=== PATIENT | female | born 1955 | race Caucasian/White ===

== ENCOUNTER 2017-02-03 16:58 | Observation (INO) ==
[2017-02-03 19:46] LABS: Basophils % 0.4 %; Eosinophils # 0.2 K/mcL (0.0-0.6); Eosinophils % 2.8 %; Hematocrit 25.5 % (35.3-44.9); Hemoglobin 7.6 g/dL (11.5-15.4); Immature Granulocytes % 0.1 % (0-4); Immature Platelets 2.9 % (1.1-6.1); Lymphocytes # 1.7 K/mcL (0.6-4.6); Lymphocytes % 24.4 %; Mean Corpuscular HGB Conc 29.8 g/dL (31.6-35.5); Mean Corpuscular Hemoglobin 21.9 pg (28.0-33.3); Mean Corpuscular Volume 73.5 fL (83.0-100.0); Mean Platelet Volume 9.4 fL (9.4-12.4); Monocytes # 0.7 K/mcL (0.0-1.3); Monocytes % 9.2 %; Neutrophils # 4.4 K/mcL (1.6-8.9); Platelet Count 306 K/mcL (140-400); Red Blood Count 3.47 M/mcL (3.82-4.97); Red Cell Distribution Width 15.6 % (11.5-14.5); Segmented Neutrophils % 63.1 %
[2017-02-03 19:51] LABS: INR 0.9; Prothrombin Time 9.9 Seconds (9.4-12.1)
[2017-02-03 20:01] LABS: Alanine Aminotransferase 14 Units/L (0-55); Albumin 3.4 g/dL (3.5-5.0); Albumin/Globulin Ratio 0.9 (1.1-2.2); Alkaline Phosphatase 107 Units/L (38-126); Aspartate Amino Transferase 17 Units/L (5-34); BUN/Creatinine Ratio 20 (6-26); Bilirubin,Total 0.3 mg/dL (0.2-1.2); Blood Urea Nitrogen 20 mg/dL (7-20); Calcium 9.1 mg/dL (8.6-10.8); Carbon Dioxide 23 mEq/L (19-29); Chloride 105 mEq/L (98-109); Globulin 3.6 g/dL (2.4-3.5); Glucose 159 mg/dL (70-99); Osmolality,Calculated 294 (280-300); Potassium 4.4 mEq/L (3.5-4.5); Sodium 139 mEq/L (136-145); eGFR For African Americans > 60 (> 60); eGFR For Non-African Americans 57 (> 60)
--- NOTE | 2017-02-03 20:20 | Emergency Department Note ---
Disposition Clinical Impression: Dyspnea Chest pain Qualifiers: Chest pain type: unspecified Qualified Code(s): R07.9 - Chest pain, unspecified Anemia Qualifiers: Anemia type: unspecified type Qualified Code(s): D64.9 - Anemia, unspecified Disposition: Admitted As Inpatient Condition: Fair Referrals: Edilma Ahuja, PARTS PERSON [Primary Care Provider] - Forms: ED Satisfaction Letter Time of Disposition: 20:30 General Adult HPI - General Chief complaint: ED Dizziness Stated complaint: "low bp" Time Seen by Provider: 02/03/17 20:08 Source: patient Limitations: no limitations Nursing Notes Reviewed: Yes Vital Signs Reviewed: Yes - History of Present Illness HPI Narrative: 61-year-old comes in complaining of chest pain intermittently with extreme exertional dyspnea. A review of the patient's labs notes that she's been anemic with hemoglobin 7.1 since September. She states she's never been told that she was anemic. 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 Location: chest Radiation: non-radiation Pain Severity: mild, moderate Pain Scale: 1 Quality: stabbing, aching Consistency: intermittent Improves with: nothing Worsens with: nothing Associated symptoms: Reports: chest pain - Related Data Home Medications Medication Instructions Recorded Confirmed Albuterol Sulfate [Ventolin Hfa] 2 puff IH Q4H PRN 11/16/15 10/03/16 Atenolol [Tenormin] 50 mg PO DAILY 11/16/15 10/03/16 Buspirone HCl [Buspar] 10 mg PO BID 11/16/15 10/03/16 Esomeprazole Magnesium [Nexium] 40 mg PO DAILY 11/16/15 10/03/16 Lisinopril/Hydrochlorothiazide 1 each PO DAILY 11/16/15 10/03/16 [Zestoretic 20-12.5 mg Tablet] Metformin HCl [Glucophage] 1,000 mg PO BID 11/16/15 10/03/16 Sertraline [Zoloft] 50 mg PO BID 11/16/15 10/03/16 Gabapentin [Neurontin] 600 mg PO BID 11/21/15 10/03/16 Melatonin 5 mg Tablet 5 mg PO HS PRN 04/06/16 10/03/16 Amlodipine [Norvasc] 5 mg PO DAILY 10/03/16 10/03/16 Budesonide/Formoterol 160/4.5 2 puff IH BID 10/03/16 10/03/16 [Symbicort 160/4.5] Cyanocobalamin (B-12) [Vitamin B12] 250 mcg PO DAILY 10/03/16 10/03/16 Cyclobenzaprine [Flexeril] 10 mg PO TID PRN 10/03/16 10/03/16 Oxycodone HCl/Acetaminophen 5 - 325 mg PO Q4H PRN 10/03/16 10/03/16 [Percocet 5-325 mg Tablet] Oxycodone HCl/Acetaminophen 10 - 650 mg PO Q4H PRN 10/03/16 10/03/16 [Percocet 5-325 mg Tablet] Sennosides/Docusate Sodium 8.6 - 50 mg PO BID PRN 10/03/16 10/03/16 [Senna-Docusate Sodium Tablet] Simvastatin [Zocor] 10 mg PO HS 10/03/16 10/03/16 Allergies Allergy/AdvReac Type Severity Reaction Status Date / Time codeine AdvReac Gastrointestinal Verified 02/03/17 17:03 Upset All systems ED: reviewed and negative except as stated. Constitutional: Denies: fever, chills, weakness, weight change Eyes: Denies: eye pain, eye discharge, vision change ENT ED: Denies: ear pain, throat pain, dental pain, hearing loss, epistaxis, congestion, dysphagia Cardiovascular: Reports: chest pain, dyspnea on exertion. Denies: palpitations , edema, syncope Respiratory: Denies: cough, dyspnea, wheezes, hemoptysis, stridor Gastrointestinal: Denies: abdominal pain, nausea, vomiting, diarrhea, constipation, hematemesis, melena, hematochezia Genitourinary: Denies: dysuria, frequency, hematuria, discharge Musculoskeletal: Denies: back pain, neck pain, arthralgia, myalgia Integumentary: Denies: rash, abrasion, lesions Neurological: Denies: headache, weakness, numbness, paresthesias, confusion, abnormal gait, vertigo Psychiatric: Denies: anxiety, depression, suicidal thoughts, homicidal thoughts , auditory hallucinations, visual hallucinations Endocrine: Denies: fatigue Hematological/Lymphatic: Denies: easy bleeding, easy bruising Allergic/Immunologic: Denies: facial swelling, urticaria Past Medical History - Past Medical History Medical history: Reports: cancer, COPD, CVA, diabetes, GERD, hypertension, other Surgical history: Reports: knee replacement Psychiatric history: Reports: bipolar, depression - Social History Smoking Status: Never smoker Smokeless Tobacco Status: No Alcohol use: Reports: none Drug use: Reports: none Physical Exam - General Limitations: no limitations General appearance: alert - Head Head exam: atraumatic, normocephalic, normal inspection - Eye Eye exam: Present: normal appearance - ENT ENT exam: normal exam, normal oropharynx, mucous membranes moist - Neck Neck exam: Present: normal inspection, full ROM, trachea midline - Chest Chest inspection: Present: normal inspection - Respiratory Respiratory exam: Present: normal lung sounds bilaterally - Cardiovascular Cardiovascular exam: Present: regular rate, normal rhythm, normal heart sounds - Abdominal Exam Abdominal exam: Present: soft, Non-Tender. Absent: tenderness, distention, guarding, rebound, rigidity - Extremities Exam Extremities exam: Present: normal inspection, full ROM. Absent: tenderness, pedal edema - Expanded Lower Extremity Exam Neurovascular/Tendon exam: Absent: motor deficit, sensory deficit, tendon deficit Gait: observed and normal - Back Exam Back exam: Present: normal inspection, full ROM. Absent: tenderness - Neurological Exam Neurological exam: Present: alert, oriented X3 - Psychiatric Psychiatric exam: Present: normal affect, normal mood - Skin Skin exam: Present: warm, dry, intact, normal color Course - Reevaluation(s) Reevaluation #1: 61-year-old who comes in complaining of some exertional dyspnea and intermittent chest discomfort. Workup included a hemoglobin of 7.6 and when I go back she's had a low hemoglobin since September when she had back surgery. Her symptoms seem to be related to her anemia. Discussed the case with the hospitalist he was given a unit of blood since she is symptomatic and less than 8. Time: 20:28 - Consultations Consultation #1: Discussed with , adama. Time: 20:28 Vital Signs Temperature 98.5 F 02/03/17 17:00 Pulse Rate 71 02/03/17 17:00 Respiratory Rate 18 02/03/17 17:00 Blood Pressure 144/90 02/03/17 17:00 O2 Sat by Pulse Oximetry 100 02/03/17 17:00 Temperature 98.5 F 02/03/17 17:00 Pulse Rate 80 02/03/17 19:26 Respiratory Rate 18 02/03/17 19:26 Blood Pressure 159/87 02/03/17 19:26 O2 Sat by Pulse Oximetry 99 02/03/17 19:26 Oxygen Delivery Oxygen Delivery Room Air Medical Decision Making - Lab Data Lab results reviewed: Yes I reviewed the patient's lab results. Result diagrams: 02/03/17 19:29 02/03/17 19:29 Lab Results 02/03/17 02/03/17 02/03/17 Range/Units 19:29 19:29 19:29 WBC 7.1 (4.3-11.1) K/mcL RBC 3.47 L (3.82-4.97) M/mcL Hgb 7.6 L (11.5-15.4) g/dL Hct 25.5 L (35.3-44.9) % MCV 73.5 L (83.0-100.0) fL MCH 21.9 L (28.0-33.3) pg MCHC 29.8 L (31.6-35.5) g/dL RDW 15.6 H (11.5-14.5) % Plt Count 306 (140-400) K/mcL MPV 9.4 (9.4-12.4) fL Immature Gran % 0.1 (0-4) % Seg Neutrophils % 63.1 % Lymphocytes % 24.4 % Monocytes % 9.2 % Eosinophils % 2.8 % Basophils % 0.4 % Neutrophils # 4.4 (1.6-8.9) K/mcL Lymphocytes # 1.7 (0.6-4.6) K/mcL Monocytes # 0.7 (0.0-1.3) K/mcL Eosinophils # 0.2 (0.0-0.6) K/mcL Basophils # 0.0 (0.0-0.2) K/mcL Immature Plt Fraction 2.9 (1.1-6.1) % PT 9.9 (9.4-12.1) Seconds INR 0.9 Sodium 139 (136-145) mEq/L Potassium 4.4 (3.5-4.5) mEq/L Chloride 105 (98-109) mEq/L Carbon Dioxide 23 (19-29) mEq/L BUN 20 (7-20) mg/dL Creatinine 0.99 (0.57-1.11) mg/dL Est GFR ( Amer) > 60 (> 60) Est GFR (Non-Af Amer) 57 L (> 60) BUN/Creatinine Ratio 20 (6-26) Glucose 159 H (70-99) mg/dL Calculated Osmolality 294 (280-300) Calcium 9.1 (8.6-10.8) mg/dL Total Bilirubin 0.3 (0.2-1.2) mg/dL AST 17 (5-34) Units/L ALT 14 (0-55) Units/L Alkaline Phosphatase 107 (38-126) Units/L Troponin I (0-0.03) ng/mL Serum Total Protein 7.0 (6.0-8.3) g/dL Albumin 3.4 L (3.5-5.0) g/dL Globulin 3.6 H (2.4-3.5) g/dL Albumin/Globulin Ratio 0.9 L (1.1-2.2) 02/03/17 Range/Units 19:29 WBC (4.3-11.1) K/mcL RBC (3.82-4.97) M/mcL Hgb (11.5-15.4) g/dL Hct (35.3-44.9) % MCV (83.0-100.0) fL MCH (28.0-33.3) pg MCHC (31.6-35.5) g/dL RDW (11.5-14.5) % Plt Count (140-400) K/mcL MPV (9.4-12.4) fL Immature Gran % (0-4) % Seg Neutrophils % % Lymphocytes % % Monocytes % % Eosinophils % % Basophils % % Neutrophils # (1.6-8.9) K/mcL Lymphocytes # (0.6-4.6) K/mcL Monocytes # (0.0-1.3) K/mcL Eosinophils # (0.0-0.6) K/mcL Basophils # (0.0-0.2) K/mcL Immature Plt Fraction (1.1-6.1) % PT (9.4-12.1) Seconds INR Sodium (136-145) mEq/L Potassium (3.5-4.5) mEq/L Chloride (98-109) mEq/L Carbon Dioxide (19-29) mEq/L BUN (7-20) mg/dL Creatinine (0.57-1.11) mg/dL Est GFR ( Amer) (> 60) Est GFR (Non-Af Amer) (> 60) BUN/Creatinine Ratio (6-26) Glucose (70-99) mg/dL Calculated Osmolality (280-300) Calcium (8.6-10.8) mg/dL Total Bilirubin (0.2-1.2) mg/dL AST (5-34) Units/L ALT (0-55) Units/L Alkaline Phosphatase (38-126) Units/L Troponin I 0.00 (0-0.03) ng/mL Serum Total Protein (6.0-8.3) g/dL Albumin (3.5-5.0) g/dL Globulin (2.4-3.5) g/dL Albumin/Globulin Ratio (1.1-2.2) - Radiology Data Radiology results reviewed: Yes I reviewed the patient's radiology results. - EKG Data EKG #1 EKG shows normal: sinus rhythm Rate: normal Rhythm: NSR Interpretation: nonspecific ST-T wave changes Critical Care Time Critical Care Time: Yes Total Critical Care Time: 30 Attestation: The high probability of a clinically significant, sudden or life threatening deterioration of the [cardiovascular hematologic] system(s) required my full and direct attention, intervention and personal management. The aggregate critical care time was [30] minutes. This time is in addition to time spent performing reported procedures but includes the following: [x] Data Review and interpretation [x] Patient assessment and monitoring of vital signs [x] Documentation [x] Medication orders and management
[2017-02-03] MEDS ORDERED: 0.9 % Sodium Chloride Mini Bag 100 ML ONE (22:33)
[2017-02-04] MEDS ORDERED: Naloxone 0.4 MG/ML INJ IVP PRN (01:58)
[2017-02-04] MEDS ORDERED: Acetaminophen 325 MG TABLET PO PRN (01:58)
--- NOTE | 2017-02-04 02:06 | Internal Med History&Physical ---
Date of Encounter: 02/04/17 Time of Encounter: 02:06 Assessment and Plan (1) Postural hypotension Status: Acute Possibly related to volume depletion versus autonomic dysfuction due to DM. Pt is given IV fluids. Monitor orthostatic vitals. Currently the pt is not hypotensive. Hold antihypertensives at this time (2) Chest pain Status: Acute Trend troponins Qualifiers: Chest pain type: unspecified Qualified Code(s): R07.9 - Chest pain, unspecified (3) Microcytic anemia Status: Acute Check iron studies. check fecal occult blood. 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 use: without terminal press operator use Qualified Code(s): E11.9 - Type 2 diabetes mellitus without complications (5) Morbid obesity Status: Chronic supportive care Qualifiers: Obesity type: unspecified obesity type Qualified Code(s): E66.01 - Morbid ( severe) obesity due to excess calories (6) COPD (chronic obstructive pulmonary disease) Status: Chronic Continue home meds; bronchodilators Qualifiers: COPD type: unspecified COPD Qualified Code(s): J44.9 - Chronic obstructive pulmonary disease, unspecified (7) GERD (gastroesophageal reflux disease) Status: Chronic Continue PPI Qualifiers: Esophagitis presence: esophagitis presence not specified Qualified Code(s) : K21.9 - Gastro-esophageal reflux disease without esophagitis Internal Medicine - H&P: HPI Chief complaint: Low BP Admitted From: Emergency Dept Plans for Post Hospital Care: Home History of present illness: Ms. Sharp is a 61 year old female with h/o COPD, diabetes, GERD, hypertension. She reports that over the last 3 weeks her blood pressure has been low, but symptoms of intermittent dizziness on standing up / walking. She reports htat she had BP of 69/38, while she was in [place] about 3 weeks ago. Apparently she had other episodes where her systolic blood pressure was in the 60s to 80s and was symptomatic with dizziness. Primary care physician recently reduced the dose of her antihypertensive medications (which included the reduced dose of atenolol from 50-25 mg a day, reducing the dose of lisinopril from 20 mg to 10 mg a day). She was apparently evaluated in primary care physicians office and was noted to be hypotensive and hence she was sent to emergency department for evaluation. The she has been normotensive to hypertensive. She denies headache or dizziness this time. She reports intermittent left infraclavicular, localized pain with no radiation. Pain is achy, intermittent, 5/10 at maximum; not associated with sweating, palpitations, shortness of breath, nausea, vomiting. She reports of feeling short of breath on minimal exertion. She denies significant cough or expectoration. She denies hematemesis, hematuria, melena, hematochezia, vaginal bleeding. She apparently had upper and lower GI endoscopy over 5 years ago, and had polyps removed. Family history significant for diabetes mellitus on her fathers side. She reports history of stomach cancer in her paternal grandfather and paternal uncle. Past Med Surg Social Fam HX - Past Medical History Medical history: cancer, COPD, CVA, diabetes, GERD, hypertension, other Psychiatric history: anxiety, bipolar, depression - Past Surgical History Surgical History: knee replacement - Social History Smoking Status: Never smoker Smokeless Tobacco Status: No Alcohol use: none Drug use: none - Family History Mother Living Status: Still Living Hx Family Cardiac Disorders: No Hx Family Respiratory Disorders: Yes Hx Family Cancer: No Hx Family GI Disorders: Yes Hx Family Endocrine Disorder: No Hx Family Neuromuscular Disorders: No Hx Family Neurologic Disorders: No Hx Family HEENT Disorders: No Hx Family Autoimmune Disorders: No Internal Medicine - H&P: Meds Albuterol Sulfate [Ventolin Hfa] 2 puff IH Q4H PRN 11/16/15 [History] Buspirone HCl [Buspar] 10 mg PO BID 11/16/15 [History] Esomeprazole Magnesium [Nexium] 40 mg PO DAILY 11/16/15 [History] Metformin HCl [Glucophage] 1,000 mg PO BID 11/16/15 [History] Sertraline [Zoloft] 50 mg PO BID 11/16/15 [History] Gabapentin [Neurontin] 1,200 mg PO QAM 11/21/15 [History] Melatonin 5 mg PO HS PRN 04/06/16 [History] Amlodipine [Norvasc] 5 mg PO DAILY 10/03/16 [History] Budesonide/Formoterol 160/4.5 [Symbicort 160/4.5] 2 puff IH BID 10/03/16 [ History] Cyanocobalamin (B-12) [Vitamin B12] 250 mcg PO DAILY 10/03/16 [History] Cyclobenzaprine [Flexeril] 10 mg PO TID PRN 10/03/16 [History] Sennosides/Docusate Sodium [Senna-Docusate Sodium Tablet] 8.6 - 50 mg PO BID PRN 10/03/16 [History] Simvastatin [Zocor] 10 mg PO HS 10/03/16 [History] Aclidinium [place] [Tudorza Pressair] 1 puff IH BID 02/03/17 [History] Aspirin [Lo-Dose Aspirin EC] 81 mg PO DAILY 02/03/17 [History] Celecoxib [Celebrex] 200 mg PO BID PRN 02/03/17 [History] Gabapentin [Neurontin] 1,200 mg PO HS 02/03/17 [History] Lisinopril/Hydrochlorothiazide [Zestoretic 10-12.5 mg Tablet] 1 tab PO DAILY 05/15 [History] OxyCODONE/APAP 5/325 mg PO Q4HR PRN 02/03/17 [History] Tizanidine HCl 4 mg PO BID 02/03/17 [History] Atenolol [Tenormin] 25 mg PO DAILY #30 tablet 02/04/17 [Rx] Ferrous Sulfate 325 mg PO BID #60 tablet. 02/04/17 [Rx] Allergies codeine Adverse Reaction (Verified 02/03/17 17:03) Gastrointestinal Upset All Systems PM: A 10-system review of systems was performed and is negative for pertinent findings except as documented above in the HPI. - Constitutional Vitals: Temp Pulse Resp BP Pulse Ox 97.0 F L 89 14 184/135 97 02/04/17 01:50 02/04/17 01:50 02/04/17 01:50 02/04/17 01:50 02/04/17 01:50 Exam: General: Not in acute distress at the time of my evaluation HEENT: Oral mucosa is moist. conjunctival palor preesent. No scleral icterus Neck: No obvious neck swellings Lungs: Clear to auscultation Cardiac: Regular rate and rhythm. No significant murmurs. Mild chest wall tenderness in hte left lateral infraclavicular area Abdomen: Soft, non tender. Bowel sounds present Genitourinary: No whitmore catheter Neurological: Alert and oriented. No gross localizing deficits Psych: Not aggressive or agitated Extremities: mild leg edema Skin: No generalized rash Internal Med - H&P Results - Labs CBC & Chem 7: 02/04/17 16:22 02/04/17 06:42 - EKG Data -: EKG Interpreted by Myself - EKG Data EKG comments: Sinus rhythm, Flat T waves in the chest leads. 02/04/17 06:16 - Impressions ITS Impressions Chest X-Ray 02/03/17 19:16 IMPRESSION: No evidence of acute disease. D/ / Collins Weaver MD / Collins Weaver MD Interpreting Provider: Collins Weaver MD
[2017-02-04 02:39] LABS: % Iron Saturation 3 % (15-50); Iron 14 mcg/dL (50-170); Transferrin 326 mg/dL (180-382)
[2017-02-04 02:59] LABS: Ferritin 8 ng/ml (5-204)
[2017-02-04 03:13] LABS: Folate 10.4 ng/mL (7.0-31.4)
[2017-02-04 03:14] LABS: Vitamin B12 > 2000 pg/mL (213-816)
[2017-02-04 03:49] LABS: Chol/HDL Ratio 3.2 (0-4.9); Magnesium 1.3 mg/dL (1.6-2.6)
[2017-02-04] MEDS ORDERED: *HR* Labetalol 20 MG/4 ML SYRINGE IVP PRN (04:53)
[2017-02-04] MEDS ORDERED: Magnesium Sulfate 2 GM in D5% in Water 100 ML IVPB ONE (05:19)
[2017-02-04 06:53] LABS: Hematocrit 30.1 % (35.3-44.9); Mean Corpuscular HGB Conc 30.9 g/dL (31.6-35.5); Mean Corpuscular Hemoglobin 22.7 pg (28.0-33.3); Mean Corpuscular Volume 73.4 fL (83.0-100.0); Mean Platelet Volume 9.6 fL (9.4-12.4); Platelet Count 296 K/mcL (140-400); Red Cell Distribution Width 15.6 % (11.5-14.5)
[2017-02-04 06:59] LABS: BUN/Creatinine Ratio 21 (6-26); Blood Urea Nitrogen 17 mg/dL (7-20); Calcium 9.5 mg/dL (8.6-10.8); Carbon Dioxide 24 mEq/L (19-29); Chloride 105 mEq/L (98-109); Glucose 113 mg/dL (70-99); Osmolality,Calculated 294 (280-300); Potassium 4.7 mEq/L (3.5-4.5); Sodium 141 mEq/L (136-145); eGFR For African Americans > 60 (> 60); eGFR For Non-African Americans > 60 (> 60)
[2017-02-04] MEDS ORDERED: *HR* Dextrose 50 % in Water (Syg) 50 ML SYRINGE IVP PRN (07:07)
[2017-02-04] MEDS ORDERED: D5% in Water 1,000 ML IVC PRN (07:07)
[2017-02-04] MEDS ORDERED: Dextrose Gel 15 GM PO PRN ×2 (07:07)
[2017-02-04 07:10] LABS: Hemoglobin 9.3 g/dL (11.5-15.4)
[2017-02-04] MEDS: Insulin LISPRO 300 UNITS/3 ML VIAL SQ SCH ×2 (08:11→11:26)
[2017-02-04] MEDS ORDERED: Gabapentin 400 MG CAPSULE PO SCH ×2 (09:00→21:00)
[2017-02-04] MEDS ORDERED: amLODIPine 5 MG TABLET PO SCH (09:00)
[2017-02-04] MEDS ORDERED: tiZANidine 4 MG TABLET PO SCH (09:00)
[2017-02-04] MEDS ORDERED: Cyanocobalamin (B-12) 1,000 MCG TABLET PO SCH (09:00)
[2017-02-04] MEDS ORDERED: Aspirin Enteric Coated 81 MG Tablet PO SCH (09:00)
[2017-02-04] MEDS ORDERED: Budesonide/Formoterol 160/4.5 MDI IH SCH (10:00)
[2017-02-04 16:48] LABS: Basophils % 0.6 %; Eosinophils # 0.2 K/mcL (0.0-0.6); Eosinophils % 2.3 %; Hematocrit 31.1 % (35.3-44.9); Hemoglobin 9.4 g/dL (11.5-15.4); Immature Granulocytes % 0.7 % (0-4); Lymphocytes # 1.7 K/mcL (0.6-4.6); Lymphocytes % 24.1 %; Mean Corpuscular HGB Conc 30.2 g/dL (31.6-35.5); Mean Corpuscular Hemoglobin 22.1 pg (28.0-33.3); Mean Platelet Volume 9.8 fL (9.4-12.4); Monocytes # 0.7 K/mcL (0.0-1.3); Monocytes % 10.3 %; Neutrophils # 4.3 K/mcL (1.6-8.9); Platelet Count 312 K/mcL (140-400); Red Blood Count 4.26 M/mcL (3.82-4.97); Red Cell Distribution Width 15.7 % (11.5-14.5)
--- NOTE | 2017-02-04 16:58 | Discharge Summary ---
Date of Encounter: 02/04/17 Time of Encounter: 16:56 - Discharge Diagnosis (1) Iron deficiency anemia Priority: Secondary Status: Acute Qualifiers: Iron deficiency anemia type: chronic blood loss Qualified Code(s): D50.0 - Iron deficiency anemia secondary to blood loss (chronic) (2) Diabetes mellitus type 2, noninsulin dependent Priority: Secondary Status: Acute (3) Postural hypotension Priority: Primary Status: Acute - Discharge Medications Prescriptions: Atenolol [Tenormin] 25 mg PO DAILY #30 tablet Ferrous Sulfate 325 mg PO BID #60 tablet.dr Home Medications: Albuterol Sulfate [Ventolin Hfa] 2 puff IH Q4H PRN 11/16/15 [History] Buspirone HCl [Buspar] 10 mg PO BID 11/16/15 [History] Esomeprazole Magnesium [Nexium] 40 mg PO DAILY 11/16/15 [History] Metformin HCl [Glucophage] 1,000 mg PO BID 11/16/15 [History] Sertraline [Zoloft] 50 mg PO BID 11/16/15 [History] Gabapentin [Neurontin] 1,200 mg PO QAM 11/21/15 [History] Melatonin 5 mg PO HS PRN 04/06/16 [History] Amlodipine [Norvasc] 5 mg PO DAILY 10/03/16 [History] Budesonide/Formoterol 160/4.5 [Symbicort 160/4.5] 2 puff IH BID 10/03/16 [ History] Cyanocobalamin (B-12) [Vitamin B12] 250 mcg PO DAILY 10/03/16 [History] Cyclobenzaprine [Flexeril] 10 mg PO TID PRN 10/03/16 [History] Sennosides/Docusate Sodium [Senna-Docusate Sodium Tablet] 8.6 - 50 mg PO BID PRN 10/03/16 [History] Simvastatin [Zocor] 10 mg PO HS 10/03/16 [History] Aclidinium [place] [Tudorza Pressair] 1 puff IH BID 02/03/17 [History] Aspirin [Lo-Dose Aspirin EC] 81 mg PO DAILY 02/03/17 [History] Celecoxib [Celebrex] 200 mg PO BID PRN 02/03/17 [History] Gabapentin [Neurontin] 1,200 mg PO HS 02/03/17 [History] Lisinopril/Hydrochlorothiazide [Zestoretic 10-12.5 mg Tablet] 1 tab PO DAILY 05/15 [History] OxyCODONE/APAP 5/325 mg PO Q4HR PRN 02/03/17 [History] Tizanidine HCl 4 mg PO BID 02/03/17 [History] Atenolol [Tenormin] 25 mg PO DAILY #30 tablet 02/04/17 [Rx] Ferrous Sulfate 325 mg PO BID #60 tablet. 02/04/17 [Rx] Allergies/Adverse Reactions: Allergies codeine Adverse Reaction (Verified 02/03/17 17:03) Gastrointestinal Upset Date of admission: 02/03/17 21:08 Primary care physician: Edilma Ahuja CNP Consults: 02/03/17 22:21 Consult to Nutrition [CONS] Routine Comment: Consulting Provider: NUTRITION Reason for Dietary Consult: MST Score - Patient Status Disposition: Home, Self-Care Condition: Good Functional capacity at discharge: independent ambulation Overall status at discharge: patient is back to baseline - Discharge Instructions Follow Up With: Edilma Ahuja CNP [Primary Care Provider] - Winnie Centeno MD [Partnered Physician] - Additional Instructions: Please call the office of Dr. Centeno on Monday to arrange for an appointment for colonoscopy and upper endoscopy. Follow-up with primary care physician in one to 2 weeks. You will have to spread out your blood pressure pills by taking the HCTZ and lisinopril in the morning and the atenolol and a lot of pain in the afternoon. - Diet and Activity Activity: increase activity as tolerated Diet: diabetic diet, low fat, low cholesterol, low salt diet Hospital course: Hospital presentation:Ms. Sharp is a 61 year old female with h/o COPD, diabetes , GERD, hypertension. She reports that over the last 3 weeks her blood pressure has been low, but symptoms of intermittent dizziness on standing up / walking. She reports htat she had BP of 69/38, while she was in [place] about 3 weeks ago. Apparently she had other episodes where her systolic blood pressure was in the 60s to 80s and was symptomatic with dizziness. Primary care physician recently reduced the dose of her antihypertensive medications (which included the reduced dose of atenolol from 50-25 mg a day, reducing the dose of lisinopril from 20 mg to 10 mg a day). She was apparently evaluated in primary care physicians office and was noted to be hypotensive and hence she was sent to emergency department for evaluation. The she has been normotensive to hypertensive. She denies headache or dizziness this time. She reports intermittent left infraclavicular, localized pain with no radiation. Pain is achy, intermittent, 5/10 at maximum; not associated with sweating, palpitations, shortness of breath, nausea, vomiting. She reports of feeling short of breath on minimal exertion. She denies significant cough or expectoration. She denies hematemesis, hematuria, melena, hematochezia, vaginal bleeding. She apparently had upper and lower GI endoscopy over 5 years ago, and had polyps removed. Hospital course: The patient was placed in the hospital for observation. She was given IV fluids. Her blood pressure was checked frequently and was normal or high. She was restarted on her blood pressure medications. He tolerated this well. She was instructed to arrange a follow-up with gastroenterology for upper endoscopy and colonoscopy. She denied a history of hematemesis melena or rectal bleed. Her iron studies were done during this hospitalization and revealed iron level low of 14, percent saturation 3% and ferritin level at 8. She was given 1 unit of blood transfusion and her hemoglobin responded appropriately to 9.3. A repeat hemoglobin at 12 hours remained stable at 9.4. She is currently normotensive and her lightheadedness and weakness has resolved. She reports being back to baseline. She does not require any further inpatient workup and therefore will be discharged home. She was instructed to spread out her antihypertensive medication given that she as taking 4 different medications for hypertension. - Time Spent with Patient Total time spent providing and/or coordinating discharge services: - Constitutional Vitals: Temp Pulse Resp BP Pulse Ox 98.2 F 80 18 116/77 94 02/04/17 15:07 02/04/17 15:07 02/04/17 15:07 02/04/17 15:02/04/17 15:07 - Respiratory Respiratory exam: Present: CTAB. Absent: accessory muscle use, rales, rhonchi, wheezes - Cardiovascular Cardiovascular exam: Present: RRR, +S1, +S2. Absent: diastolic murmur, gallop, rubs, systolic murmur - GI/Abdominal GI/Abdominal exam: Present: normal bowel sounds, soft, no peritoneal signs. Absent: distended, tenderness - Extremities Exam Extremities exam: Present: warm, radial pulses palpable and symetrical. Absent : calf tenderness, cyanotic, pedal edema - Neurological Exam Neurological exam: Present: CN II-XII intact, oriented X3, no focal deficits. Absent: pronater drift, facial droop, speech deficit
[2017-02-04] MEDS ORDERED: Insulin LISPRO 300 UNITS/3 ML VIAL SQ SCH (21:00)
--- NOTE | 2017-02-06 08:57 | Electrocardiograph Report ---
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
[2017-02-07 10:27] VITALS: BP 116/77
== END 2017-02-04 18:15 | disposition home or self-care (01) ==
LOC: EMEROO 16:58 → 3ANU 16:58
PROVIDERS: ADMIT Nurse Practitioner Acute Care; ATTEND Internal Medicine

== ENCOUNTER 2017-10-14 11:05 | Inpatient (IN) ==
[~2017-10-14 11:05] MED LIST: *HR* Labetalol 20 MG/4 ML SYRINGE IVP PRN; *HR* Promethazine 25 MG/ML VIAL IVP PRN
--- NOTE | 2017-10-14 11:16 | History & Physical Report ---
Date of Encounter: 10/14/17 Time of Encounter: 11:15 24 Hour HP Update - Instructions Instructions: If the History and Physical is less than 30 days old and was completed prior to A.M. admission and or procedure and has NOT been updated on calendar day of procedure please complete this update prior to performing procedure. - Update Patient reports changes in Medical Condition: No Changes in examination, assessment, or condition: No Changes in Medication: No Preop tests/diagnostics Reviewed: Yes Surgery Remains Indicated: Yes Consent for Planned Operative Procedure(s) Verified: Yes - Pre-Operative Checklist Preoperative Checklist Indicated: No Prophylactic Antibiotic Ordered: Yes Is VTE Prophylaxis Indicated?: Yes
[2017-10-14] MEDS ORDERED: Albuterol 2.5 MG/3 ML NEBULIZER IH ONE (11:25)
[2017-10-14] MEDS ORDERED: CeFAZolin Syr 2,000MG/20 ML 2,000 MG/20 ML SYRINGE IVPB ONE (11:25)
[2017-10-14] MEDS ORDERED: Lidocaine -MPF 1% 2 ML VIAL ID ONE (11:25)
[2017-10-14] MEDS ORDERED: Plasma-Lyte A (PH 7.4) 1,000 ML IVC SCH (11:30)
[2017-10-14] MEDS ORDERED: Levalbuterol Neb 1.25 MG/3 ML IH ONE (12:04)
--- NOTE | 2017-10-14 12:23 | History & Physical Report ---
Date of Encounter: 10/14/17 Time of Encounter: 12:23 24 Hour HP Update - Instructions Instructions: If the History and Physical is less than 30 days old and was completed prior to A.M. admission and or procedure and has NOT been updated on calendar day of procedure please complete this update prior to performing procedure. - Update Patient reports changes in Medical Condition: No Changes in examination, assessment, or condition: No Changes in Medication: No Preop tests/diagnostics Reviewed: Yes Surgery Remains Indicated: Yes Consent for Planned Operative Procedure(s) Verified: Yes - Pre-Operative Checklist Preoperative Checklist Indicated: No Prophylactic Antibiotic Ordered: Yes Is VTE Prophylaxis Indicated?: Yes
[2017-10-14] MEDS ORDERED: *HR* FentaNYL (PF) 100 MCG/2 ML VIAL ONE ×2 (12:38→14:41)
[2017-10-14] MEDS ORDERED: *HR* Propofol 200 MG/20 ML VIAL IVP ONE (12:38)
[2017-10-14] MEDS ORDERED: *HR* Midazolam HCl 2 MG/2 ML VIAL ONE (12:38)
[2017-10-14] MEDS ORDERED: Vancomycin 1,000 MG in D5% in Water 250 ML IVPB ONE (12:42)
[2017-10-14] MEDS ORDERED: Ondansetron 4 MG/2 ML VIAL ONE (12:47)
[2017-10-14] MEDS ORDERED: Dexamethasone 4 MG/ML VIAL ONE (12:47)
--- NOTE | 2017-10-14 13:18 | Discharge Summary ---
Date of Encounter: 10/16/17 Time of Encounter: 06:52 - Discharge Diagnosis (1) Arthritis of left knee Priority: Primary Status: Chronic (2) Status post total left knee replacement Priority: Primary Status: Acute (3) Obesity (BMI 30.0-34.9) Priority: Secondary Status: Chronic (4) History of CVA (cerebrovascular accident) Priority: Secondary Status: Chronic (5) COPD (chronic obstructive pulmonary disease) Priority: Secondary Status: Chronic Qualifiers: COPD type: unspecified COPD Qualified Code(s): J44.9 - Chronic obstructive pulmonary disease, unspecified (6) Diabetes mellitus Priority: Secondary Status: Chronic Qualifiers: Diabetes mellitus type: type 2 Diabetes mellitus complication status: with unspecified complications Diabetes mellitus exterminator helper insulin use: unspecified half-way insulin use status Qualified Code(s): E11.8 - Type 2 diabetes mellitus with unspecified complications (7) Hypertension Priority: Secondary Status: Chronic Qualifiers: Hypertension type: unspecified Qualified Code(s): I10 - Essential (primary ) hypertension (8) GERD (gastroesophageal reflux disease) Priority: Secondary Status: Chronic Qualifiers: Esophagitis presence: esophagitis presence not specified Qualified Code(s) : K21.9 - Gastro-esophageal reflux disease without esophagitis (9) Status post shoulder replacement Priority: Secondary Status: Chronic Qualifiers: Laterality: unspecified laterality Qualified Code(s): Z96.619 - Presence of unspecified artificial shoulder joint (10) Diabetes mellitus type 2, noninsulin dependent Priority: Secondary Status: Chronic (11) Acute blood loss anemia Priority: Primary Status: Acute - Discharge Medications Home Medications: Buspirone HCl [Buspar] 10 mg PO BID 11/16/15 [History] Metformin HCl [Glucophage] 1,000 mg PO BID 11/16/15 [History] Melatonin 5 mg PO HS PRN 04/06/16 [History] Simvastatin [Zocor] 10 mg PO HS 10/03/16 [History] Aspirin [Lo-Dose Aspirin EC] 81 mg PO DAILY 02/03/17 [History] Celecoxib [Celebrex] 200 mg PO BID PRN 02/03/17 [History] Gabapentin [Neurontin] 800 mg PO TID 02/03/17 [History] Lisinopril/Hydrochlorothiazide [Zestoretic 10-12.5 mg Tablet] 1 tab PO DAILY 05/15 [History] Ferrous Sulfate 325 mg PO BID #60 tablet. 02/04/17 [Rx] Aclidinium [place] [Tudorza Pressair] 400 mcg IH BID 10/14/17 [History] Albuterol Sulfate [Ventolin Hfa] 18 gm IH Q4HR PRN 10/14/17 [History] Metoprolol Succinate 50 mg PO DAILY 10/14/17 [History] Pantoprazole Sodium [Protonix] 40 mg PO BID 10/14/17 [History] Sertraline [Zoloft] 50 mg PO BID 10/14/17 [History] Allergies/Adverse Reactions: 3 Allergy/AdvReac Type Severity Reaction Status Date / Time codeine AdvReac Gastrointestinal Verified 10/15/17 11:19 Upset Labs on day of discharge: Labs from last 24 hours 10/14/17 11:41 POC Glucose 129 H Primary care physician: Edilma Ahuja CNP - Patient Status Disposition: Transfer Inpatient Rehab Fac Condition: Good Functional capacity at discharge: uses cane/walker Overall status at discharge: patient is progressing back to baseline - Discharge Instructions Follow Up With: Edilma Ahuja CNP [Primary Care Provider] - - Hospital Course Hospital course: Ms. Sharp is a 61 year old female Status post left total knee replacement. Patient with acute blood loss anemia and received 2 units. The patient had an uneventful postoperative course. They received antibiotics and physical therapy and were discharged in stable condition. There will follow -up in the office in 2 weeks. - Time Spent with Patient Total time spent providing and/or coordinating discharge services:
[2017-10-14] MEDS ORDERED: Ethanol\\Acetic Acid\\Na Ace\\Ben 1,000 ML IRRIG.SOLN IR ONE (13:30)
--- NOTE | 2017-10-14 13:38 | Anesthesia Evaluation PreOp ---
Date of Encounter: 10/14/17 Time of Encounter: 13:33 - Past History Planned Operation: Left total knee replacement Cardiac History: HTN, Hyperlipidemia Pulmonary History: COPD FILLING WINDER History: CVA, Other (chronic back pain) Other Medical History: Diabetes Type II, GERD, Other (restless leg syndrome) Anesthesia History: Past Anesthesia (csection x 3, breast bx, LTKR, L total shoulder replacement, biceps tenodesis, back sx, bi CTR), Problems (post op respiratory failure) Alcohol Use: none Drug use: marijuana Medications and Allergies Buspirone HCl [Buspar] 10 mg PO BID 11/16/15 [History] Metformin HCl [Glucophage] 1,000 mg PO BID 11/16/15 [History] Melatonin 5 mg PO HS PRN 04/06/16 [History] Simvastatin [Zocor] 10 mg PO HS 10/03/16 [History] Aspirin [Lo-Dose Aspirin EC] 81 mg PO DAILY 02/03/17 [History] Celecoxib [Celebrex] 200 mg PO BID PRN 02/03/17 [History] Gabapentin [Neurontin] 800 mg PO TID 02/03/17 [History] Lisinopril/Hydrochlorothiazide [Zestoretic 10-12.5 mg Tablet] 1 tab PO DAILY 05/15 [History] Ferrous Sulfate 325 mg PO BID #60 tablet. 02/04/17 [Rx] Aclidinium [place] [Tudorza Pressair] 400 mcg IH BID 10/14/17 [History] Albuterol Sulfate [Ventolin Hfa] 18 gm IH Q4HR PRN 10/14/17 [History] Metoprolol Succinate 50 mg PO DAILY 10/14/17 [History] Pantoprazole Sodium [Protonix] 40 mg PO BID 10/14/17 [History] Sertraline [Zoloft] 50 mg PO BID 10/14/17 [History] 3 Allergy/AdvReac Type Severity Reaction Status Date / Time codeine AdvReac Gastrointestinal Verified 10/09/17 13:51 Upset - Meds/Allergy Pre-op Review Medications Reviewed: Yes Allergies Reviewed: Yes Beta Blockers on Current Med List: Yes If Beta Blockers taken, Date/Time (Last Dose taken): 1200 today Anesthesia Results - Labs Laboratory Tests 02/04/17 10/09/17 10/09/17 06:42 14:26 14:26 WBC 6.2 Hgb 11.0 L Hct 33.9 L Plt Count 241 PT 10.5 INR 1.0 APTT 25.4 L Sodium Potassium Chloride Carbon Dioxide BUN Creatinine Glucose 113 H POC Glucose Est Mean Plasma Glucose Hemoglobin A1c 10/09/17 10/09/17 10/14/17 14:26 14:26 11:41 WBC Hgb Hct Plt Count PT INR APTT Sodium 142 Potassium 4.6 H Chloride 106 Carbon Dioxide 28 BUN 13 Creatinine 0.94 Glucose POC Glucose 129 H Est Mean Plasma Glucose 134 Hemoglobin A1c 6.3 H - Imaging EKG: report reviewed (NDR) Anesthesia Exam Vital Signs/O2 Sat, Most Current Temp Pulse Resp BP Pulse Ox 98.6 F 110 18 138/89 96 10/14/17 11:46 10/14/17 11:46 10/14/17 11:46 10/14/17 11:46 10/14/17 11:46 Height: 1.5m Weight: 74kg NPO (# of Hours): >8 - HEENT Pupil (Motor): Pupils equal, EOMI Mallampati: II Teeth: Normal Oral Opening: Greater than 3 - FILLING WINDER LOC: Oriented FILLING WINDER Motor: Normal RUE, Normal LUE, Normal RLE, Normal LLE, Normal Face FILLING WINDER Sensory: Normal: RUE, LUE, RLE, LLE, Face - Cardiac Rhythm: Regular - Pulmonary Breath Sounds: bilateral Clear Respiratory Effort: Symmetrical Anesthesia Assess/Plan ASA Score: 3 Modified Waldorf Scale for Level of Consciousness: Cooperative, oriented, and tranquil Anesthetic Plan: General (r/b/a discussed, questions answered, consent obtained) , Regional (no block as pt has prexisting nerve damage/injury) Monitoring Plan: Standard Monitors Recovery Plan: PACU
[2017-10-14] MEDS ORDERED: ROPIVACAINE HCL/PF 0.5% 30 ML VIAL ONE (13:52)
[2017-10-14] MEDS ORDERED: Bupivacaine/Clonidine Syringe 1 EACH SYRINGE ONE (13:52)
[2017-10-14] MEDS ORDERED: Ketamine *HR* 500 MG/10 ML MDV ONE (14:08)
--- NOTE | 2017-10-14 15:04 | Orthopedic Operative Note ---
Date of procedure: 10/14/17 Pre-op diagnosis: Left knee arthritis Post-op diagnosis: same Procedure: Procedure: Left Total knee replacement Estimated blood loss: 300 cc Hardware: Metal and polyethylene replacement. Arthrex Femur: 4 Tibia: 4 PS insert: 16 Patella: 37 Exam Under anesthesia: Loss of full extension 20 degrees varus alignment. Procedural Notes: Grade 4 arthritic changes medial compartment grade 3 arthritic changes patellofemoral joint. Operative procedure: The patient was brought to the operating room and placed on the operating room table. After general anesthesia was administered the operative knee was examined. Findings were noted in the exam under anesthesia. The operative extremity was prepped and draped in sterile surgical fashion. The patient received IV antibiotics prior to skin incision. A standard midline incision was made centered over the patella. The incision was made through the skin and subcutaneous tissue. A medial parapatellar tendon approach was performed. Care was taken to preserve tissue along the medial aspect of the patella. And to protect the patella tendon. The deep MCL was released off the medial tibia. The infra patella fat pad was excised. Knee was brought into flexion. She noted the grade 4 arthritic changes medial compartment and grade 3 arthritic changes patellofemoral joint. The entry hole was made for the intramedullary femoral guide. The guide was seated in 6 degrees of valgus. Anterior cut was made followed by the distal cut. The ACL the PCL the medial and the lateral menisci were excised. The tibia was subluxed forward. The entry hole was made for the intramedullary tibial guide. Guide was seated to resect 2 mm off the more abnormal side. The knee was brought into flexion the distal femur was sized to a 4. The femoral guide was seated, the anterior cut was made followed by the posterior condylar cut, followed by the chamfer cuts. The finishing guide was seated the box cut was made and the lug holes were drilled. The tibia was sized to a 4, the tibial tray was seated and prepared with the large drill followed by the fin cutter. Trial reduction revealed full extension no varus valgus instability with the appropriate 16 PS Yomaira. The patella was everted and cut was made at the level of the insertion of the quadriceps and patella tendon. The patella was sized 37 the guide was seated and the lug holes are drilled. Trial reduction revealed excellent patella tracking. All trial components were removed all bony surfaces were irrigated. The tibia was cemented first followed by the femur. The 16 PS Yomaira was seated and the knee was brought into full extension. The patella was cemented and held in place with the patellar holding clamp. After the cement had hardened, the knee sat for 2 minutes with a Betadine saline solution. The knee was then irrigated out with 2 L of pulse irrigation. The extensor mechanism was closed with #2 FiberWire suture and #2 PDS suture. The subcutaneous tissue was then irrigated and closed deep with #1 PDS suture superficially with 0 PDS suture and skin was closed with zip tie The patient was then placed in a sterile dressing and a postoperative brace extubated and transferred to recovery room in stable condition. Anesthesia: KAYKAY Surgeon: Kt Oscar Condition: stable Disposition: PACU
[2017-10-14] MEDS: *HR* HYDROmorphone (PF) 1 MG/ML SYRINGE IVP PRN ×2 (15:35→15:40)
[2017-10-14] MEDS ORDERED: *HR* Morphine 2 MG/ML SYRINGE ONE (15:52)
[2017-10-14] MEDS ORDERED: *HR* HYDROmorphone (PF) 1 MG/ML SYRINGE ONE (15:52)
[2017-10-14] MEDS ORDERED: *HR* Labetalol 100 MG/20 ML MDV IVP PRN (15:53)
--- NOTE | 2017-10-14 16:12 | Anesthesia Evaluation Post Op ---
Date of Encounter: 10/14/17 Time of Encounter: 16:11 - Vital Signs Vital Signs: vss - Lungs Lungs: Clear Ascult./Percussion - Airway Airway: Non-obstructed - Cardiovascular Baseline Rhythm - Mental Status Mental Status: Asleep with brisk response to light stimulation - Pain Pain Scale used: Ruby (Faces) (once pain is tolerable okay to discharge from PACU) - Nausea Vomiting Nausea Vomiting: Not Present - Hydration Hydration: Ice chips - Discharge PostOp Status: Transfer Patient to floor
[2017-10-14] MEDS ORDERED: *HR* OxyCODONE Immed Rel 5 MG TABLET PO PRN (16:34)
[2017-10-14] MEDS ORDERED: Ringers Solution, Lactated 1,000 ML IVC SCH (16:34)
[2017-10-14] MEDS ORDERED: Dextrose Gel 15 GM PO PRN ×2 (16:34)
[2017-10-14] MEDS ORDERED: Naloxone 0.4 MG/ML INJ IVP PRN (16:34)
[2017-10-14] MEDS ORDERED: D5% in Water 1,000 ML IVC PRN (16:34)
[2017-10-14] MEDS ORDERED: Temazepam 15 MG CAPSULE PO PRN (16:34)
[2017-10-14] MEDS ORDERED: *HR* Dextrose 50 % in Water (Syg) 50 ML SYRINGE IVP PRN (16:34)
[2017-10-14] MEDS ORDERED: Sennosides 8.6 MG TABLET PO PRN (16:34)
[2017-10-14] MEDS ORDERED: MOM Conc 10 ML UD.LIQ PO PRN (16:34)
[2017-10-14] MEDS: CeFAZolin Premix DUPLEX 2,000 MG/50 ML BAG IVPB SCH (17:33)
[2017-10-14] MEDS: *HR* Enoxaparin 30 MG/0.3 ML SYRINGE SQ SCH (17:34)
[2017-10-14] MEDS: Insulin LISPRO 300 UNITS/3 ML VIAL SQ SCH ×2 (17:41→21:07)
[2017-10-14 18:00] LABS: Hematocrit 33.3 % (35.3-44.9); Hemoglobin 10.6 g/dL (11.5-15.4)
[2017-10-14] MEDS ORDERED: *HR* Enoxaparin 30 MG/0.3 ML SYRINGE SQ SCH (18:00)
[2017-10-14] MEDS ORDERED: Acetaminophen IV 1,000 MG/100 ML INFUS..BTL IVPB PRN (18:22)
[2017-10-14] MEDS: *HR* Metformin 500 MG TABLET PO SCH ×2 (20:47→21:27)
[2017-10-14] MEDS: Gabapentin 400 MG CAPSULE PO SCH ×2 (20:48→21:27)
[2017-10-14] MEDS: (Aclidinium Bromide [Tudorza Pressair] 400 MCG) IH SCH (20:50)
[2017-10-14] MEDS: Ketorolac 30 MG/ML VIAL IVP PRN (21:02)
[2017-10-14] MEDS: Ondansetron 4 MG/2 ML VIAL IVP PRN (21:09)
[2017-10-14] MEDS: Acetaminophen IV 1,000 MG/100 ML INFUS..BTL IVPB SCH (21:14)
[2017-10-15] MEDS: CeFAZolin Premix DUPLEX 2,000 MG/50 ML BAG IVPB SCH (00:24)
[2017-10-15] MEDS: Acetaminophen IV 1,000 MG/100 ML INFUS..BTL IVPB SCH ×4 (03:11→21:27)
[2017-10-15] MEDS: Ketorolac 30 MG/ML VIAL IVP PRN ×2 (03:11→09:29)
[2017-10-15] MEDS: Ondansetron 4 MG/2 ML VIAL IVP PRN (03:25)
[2017-10-15] MEDS: *HR* Enoxaparin 30 MG/0.3 ML SYRINGE SQ SCH ×2 (06:05→16:41)
[2017-10-15] MEDS: *HR* OxyCODONE Immed Rel 5 MG TABLET PO PRN ×2 (06:18→12:34)
[2017-10-15 07:06] LABS: Hematocrit 26.3 % (35.3-44.9)
[2017-10-15 07:11] LABS: Hemoglobin 8.5 g/dL (11.5-15.4)
[2017-10-15 07:19] LABS: BUN/Creatinine Ratio 19 (6-26); Blood Urea Nitrogen 17 mg/dL (7-20); Calcium 8.7 mg/dL (8.6-10.8); Carbon Dioxide 26 mEq/L (19-29); Chloride 102 mEq/L (98-109); Glucose 122 mg/dL (70-99); Osmolality,Calculated 289 (280-300); Potassium 4.3 mEq/L (3.5-4.5); Sodium 138 mEq/L (136-145); eGFR For African Americans > 60 (> 60); eGFR For Non-African Americans > 60 (> 60)
[2017-10-15] MEDS: *HR* Metformin 500 MG TABLET PO SCH ×2 (08:37→21:28)
[2017-10-15] MEDS: Aspirin Enteric Coated 81 MG Tablet PO SCH (08:37)
[2017-10-15] MEDS: Metoprolol XL (24 HR) Succ 50 MG TAB.ER.24H PO SCH (08:37)
[2017-10-15] MEDS: Gabapentin 400 MG CAPSULE PO SCH ×3 (08:37→21:28)
[2017-10-15] MEDS: Insulin LISPRO 300 UNITS/3 ML VIAL SQ SCH ×4 (08:38→21:29)
[2017-10-15] MEDS: (Aclidinium Bromide [Tudorza Pressair] 400 MCG) IH SCH ×2 (08:43→22:28)
[2017-10-15] MEDS: *HR* HYDROmorphone (PF) 1 MG/ML SYRINGE IVP PRN (10:39)
[2017-10-15] MEDS: 0.9 % Sodium Chloride 250 ML IVC SCH ×2 (13:32→18:37)
--- NOTE | 2017-10-15 14:39 | Orthopedics Progress Note ---
Date of Encounter: 10/15/17 Time of Encounter: 14:38 Subjective Principal diagnosis: Left knee arthritis Interval history: Patient is comfortable with minimal pain Left knee dressings are clean dry and intact with mild spotting Bilateral calves are soft and nontender Grossly neurovascularly intact Postop day #1 status left knee total arthroplasty, stable Continue DVT prophylaxis Continue OT/PT Objective Vital signs: Vital Signs Temp Pulse Resp BP Pulse Ox 10/15/17 13:44 98.3 F 76 14 93/66 96 10/15/17 13:29 98.1 F 82 14 109/72 100 10/15/17 12:00 98.0 F 79 16 122/81 97 10/15/17 06:42 98.5 F 84 16 144/86 99 10/15/17 05:30 98.3 F 88 16 148/87 98 10/15/17 00:41 98.0 F 80 16 143/89 98 10/14/17 20:51 84 159/110 100 10/14/17 19:14 97.5 F L 10/14/17 18:59 96.3 F L 67 16 160/28 93 10/14/17 17:31 97.3 F L 76 15 124/87 94 10/14/17 17:10 97.5 F L 73 16 114/79 95 10/14/17 16:55 95 10/14/17 16:42 97.9 F 70 14 122/78 96 10/14/17 16:14 98.9 F 74 16 123/95 98 10/14/17 16:04 98.9 F 76 16 134/88 95 10/14/17 15:54 81 16 155/91 99 10/14/17 15:44 98.9 F 80 16 164/96 99 10/14/17 15:34 89 16 188/108 97 10/14/17 15:24 93 15 177/108 100 10/14/17 15:14 97.0 F L 84 16 142/106 100 Intake and Output 10/14/17 10/15/17 10/15/17 23:59 07:59 15:59 Intake Total 150 / 150 100 / 100 Output Total 300 / 300 Balance -150 / -150 100 / 100 Intake: IV Fluids 150 / 150 100 / 100 Ofirmev 1,000 mg/100 ml 1,000 100 / 100 100 / 100 mg In 100 ml @ 400 mls/hr IVPB Q6H YO Rx#:[id number] Ancef Premix DUPLEX 2,000 mg In 50 / 50 50 ml @ 100 mls/hr IVPB Q8H YO Rx#:[id number] Blood Product 0 / 0 Rbcs Leuko Poor As-1 Unit 0 / 0 [id number] Output: Urine 300 / 300 Other: # Voids 1 1 Blood Glucose* 159 127 158 - Labs CBC & BMP: 10/15/17 06:26 10/15/17 06:26 Labs: Abnormal lab results Hgb 8.5 g/dL (11.5-15.4) L D 10/15/17 06:26 Hct 26.3 % (35.3-44.9) L 10/15/17 06:26 Glucose 122 mg/dL (70-99) H 10/15/17 06:26 POC Glucose 127 (58-89) H 10/15/17 07:50 - VTE Documentation of Mechanical Device: Venous foot pump, device Consult Discharge Plan - Plan Referrals: Edilma Ahuja, HARVEST WORKER [Primary Care Provider] -
[2017-10-16] MEDS: Acetaminophen IV 1,000 MG/100 ML INFUS..BTL IVPB SCH ×4 (03:37→21:00)
[2017-10-16] MEDS: *HR* Enoxaparin 30 MG/0.3 ML SYRINGE SQ SCH ×2 (05:35→17:35)
[2017-10-16] MEDS: *HR* OxyCODONE Immed Rel 5 MG TABLET PO PRN ×3 (05:52→16:09)
--- NOTE | 2017-10-16 06:54 | Orthopedics Progress Note ---
Date of Encounter: 10/16/17 Time of Encounter: 06:54 - Assessment and Plan (1) Arthritis of left knee Current Visit: Yes Status: Chronic (2) Status post total left knee replacement Current Visit: Yes Status: Acute (3) Obesity (BMI 30.0-34.9) Current Visit: Yes Status: Chronic (4) History of CVA (cerebrovascular accident) Current Visit: No Status: Chronic (5) COPD (chronic obstructive pulmonary disease) Current Visit: No Status: Chronic Qualifiers: COPD type: unspecified COPD Qualified Code(s): J44.9 - Chronic obstructive pulmonary disease, unspecified (6) Diabetes mellitus Current Visit: No Status: Chronic Qualifiers: Diabetes mellitus type: type 2 Diabetes mellitus complication status: with unspecified complications Diabetes mellitus rodent exterminator insulin use: unspecified rodent exterminator insulin use status Qualified Code(s): E11.8 - Type 2 diabetes mellitus with unspecified complications (7) Hypertension Current Visit: No Status: Chronic Qualifiers: Hypertension type: unspecified Qualified Code(s): I10 - Essential (primary ) hypertension (8) GERD (gastroesophageal reflux disease) Current Visit: No Status: Chronic Qualifiers: Esophagitis presence: esophagitis presence not specified Qualified Code(s) : K21.9 - Gastro-esophageal reflux disease without esophagitis (9) Status post shoulder replacement Current Visit: No Status: Chronic Qualifiers: Laterality: unspecified laterality Qualified Code(s): Z96.619 - Presence of unspecified artificial shoulder joint (10) Diabetes mellitus type 2, noninsulin dependent Current Visit: No Status: Chronic (11) Acute blood loss anemia Current Visit: Yes Status: Acute Subjective Principal diagnosis: Left knee arthritis Interval history: Patient was seen this morning doing well without complaints. Afebrile vital signs stable. Operative extremity: Neurovascularly intact Dressing clean dry and intact Calves nontender Assessment and plan: Continue with postoperative care Discharge today Objective Vital signs: Vital Signs Temp Pulse Resp BP Pulse Ox 10/16/17 06:41 98.9 F 96 18 154/90 94 10/16/17 00:56 99 F 80 19 108/70 92 10/15/17 21:37 98.3 F 84 16 106/71 97 10/15/17 18:44 97.8 F 83 16 97/65 95 10/15/17 18:29 98 F 80 14 104/71 98 10/15/17 16:22 98.2 F 81 16 121/76 94 10/15/17 14:51 98.5 F 78 16 98/67 95 10/15/17 13:44 98.3 F 76 14 93/66 96 10/15/17 13:29 98.1 F 82 14 109/72 100 10/15/17 12:00 98.0 F 79 16 122/81 97 Intake and Output 10/15/17 10/15/17 10/16/17 15:59 23:59 07:59 Intake Total 450 / 450 1150 / 1150 Output Total 450 / 450 Balance 0 / 0 1150 / 1150 Intake: IV Fluids 100 / 100 350 / 350 0.9 % Sodium Chloride 250 ML @ 250 / 250 25 mls/hr IVC .Q10H YO Rx#: [id number] Ofirmev 1,000 mg/100 ml 1,000 100 / 100 100 / 100 mg In 100 ml @ 400 mls/hr IVPB Q6H YO Rx#:[id number] Oral 350 / 350 Blood Product 0 / 0 800 / 800 Rbcs Leuko Poor As-1 Unit 500 / 500 [id number] Rbcs Leuko Poor As-1 Unit 0 / 0 300 / 300 [id number] Output: Urine 450 / 450 Other: Meal Lunch Percent of Meal Consumed 25% # Voids 1 1 1 Blood Glucose* 158 146 - Labs CBC & BMP: 10/15/17 06:26 10/15/17 06:26 Labs: Abnormal lab results Hgb 8.5 g/dL (11.5-15.4) L D 10/15/17 06:26 Hct 26.3 % (35.3-44.9) L 10/15/17 06:26 Glucose 122 mg/dL (70-99) H 10/15/17 06:26 POC Glucose 146 (58-89) H 10/15/17 20:18 - VTE Documentation of Mechanical Device: Venous foot pump, device Consult Discharge Plan - Plan Referrals: Edilma Ahuja, MANUFACTURING WEAVER [Primary Care Provider] -
[2017-10-16 06:59] LABS: Hemoglobin 10.5 g/dL (11.5-15.4)
[2017-10-16 07:02] LABS: BUN/Creatinine Ratio 23 (6-26); Blood Urea Nitrogen 18 mg/dL (7-20); Calcium 8.6 mg/dL (8.6-10.8); Carbon Dioxide 24 mEq/L (19-29); Chloride 104 mEq/L (98-109); Glucose 131 mg/dL (70-99); Osmolality,Calculated 288 (280-300); Potassium 4.6 mEq/L (3.5-4.5); Sodium 137 mEq/L (136-145); eGFR For African Americans > 60 (> 60); eGFR For Non-African Americans > 60 (> 60)
[2017-10-16] MEDS: *HR* HYDROmorphone (PF) 1 MG/ML SYRINGE IVP PRN ×2 (08:06→17:36)
[2017-10-16] MEDS: Gabapentin 400 MG CAPSULE PO SCH ×3 (08:08→20:10)
[2017-10-16] MEDS: Metoprolol XL (24 HR) Succ 50 MG TAB.ER.24H PO SCH (08:08)
[2017-10-16] MEDS: *HR* Metformin 500 MG TABLET PO SCH ×2 (08:08→20:10)
[2017-10-16] MEDS: Aspirin Enteric Coated 81 MG Tablet PO SCH (08:09)
[2017-10-16] MEDS: Insulin LISPRO 300 UNITS/3 ML VIAL SQ SCH ×4 (08:12→21:15)
[2017-10-16] MEDS: (Aclidinium Bromide [Tudorza Pressair] 400 MCG) IH SCH (09:20)
--- NOTE | 2017-10-16 12:45 | Physician Discharge Referral ---
ExtendedCare Referral Info Transfer To: [facility] Provider in Charge: Dr Kt Oscar - Diagnosis (1) Morbid obesity Priority: Secondary Status: Chronic (2) History of CVA (cerebrovascular accident) Priority: Secondary Status: Chronic (3) COPD (chronic obstructive pulmonary disease) Priority: Secondary Status: Chronic (4) Diabetes mellitus Priority: Secondary Status: Chronic (5) Hypertension Status: Chronic (6) GERD (gastroesophageal reflux disease) Priority: Secondary Status: Chronic (7) Status post total left knee replacement Priority: Primary Status: Acute (8) Arthritis of left knee Priority: Primary Status: Chronic Expected Duration of Placement: less than 30 days Prognosis: Good Aware of Diagnosis: Patient Aware of Prognosis: Patient - Transfer Medications Home Medications: Buspirone HCl [Buspar] 10 mg PO BID 11/16/15 [History] Metformin HCl [Glucophage] 1,000 mg PO BID 11/16/15 [History] Melatonin 5 mg PO HS PRN 04/06/16 [History] Simvastatin [Zocor] 10 mg PO HS 10/03/16 [History] Aspirin [Lo-Dose Aspirin EC] 81 mg PO DAILY 02/03/17 [History] Celecoxib [Celebrex] 200 mg PO BID PRN 02/03/17 [History] Gabapentin [Neurontin] 800 mg PO TID 02/03/17 [History] Lisinopril/Hydrochlorothiazide [Zestoretic 10-12.5 mg Tablet] 1 tab PO DAILY 05/15 [History] Ferrous Sulfate 325 mg PO BID #60 tablet. 02/04/17 [Rx] Aclidinium [place] [Tudorza Pressair] 400 mcg IH BID 10/14/17 [History] Albuterol Sulfate [Ventolin Hfa] 18 gm IH Q4HR PRN 10/14/17 [History] Metoprolol Succinate 50 mg PO DAILY 10/14/17 [History] Pantoprazole Sodium [Protonix] 40 mg PO BID 10/14/17 [History] Sertraline [Zoloft] 50 mg PO BID 10/14/17 [History] Allergies/Adverse Reactions: 3 Allergy/AdvReac Type Severity Reaction Status Date / Time codeine AdvReac Gastrointestinal Verified 10/15/17 11:19 Upset - Respiratory Orders Smoking Cessation: Smoking cessation has been advised. For more information, call the [place] Tobacco Quit Line at 5-338-QDTL-NOW. - Ancillary Orders May use pressure relief devices daily prn, May go on WALT w/family/respon democrat w /meds at nurse discretion PRN, May consult with Dentist, Wafer Fab Technician, Athletic Trainer PRN - Mobility Orders Chair, Ambulate - Rehabiliation Orders Rehab Potential: Good Rehab Orders: Evaluation for Physical Therapy, Evaluation for Occupational Therapy Other: Total Knee replacement Precautions x 6 weeks Apply cold therapy wrap 3-6x/day for 20 minutes at a time. Encourage ambulation throughout the day and incentive spirometer 10x/hour. Elevate affected extremity above heart as tolerated. Brace: Wear knee immobilizer at night x 2 weeks. - Treatments Skin tear care topically daily PRN per policy List/Other: Opsite placed. Keep dressing intact until first follow up appointment. If > 50% saturated, notify office, remove dressing and place appropriate dressing back in place. Leave Zipline intact. Opsite dressing is water resistant, not water- proof. OK to shower, but do not get dressing wet. - Diet Orders Regular CERTIFICATION: I certify that the transfer of the above named patient to an Extended Care Facility is necessary for the continuing treatment of the diagnosis listed. The above information is true and accurate reflection of patient's current condition. Confidential - Redisclosure prohibited without a patient's written consent.
[2017-10-17] MEDS: (Aclidinium Bromide [Tudorza Pressair] 400 MCG) IH SCH ×2 (00:25→07:50)
[2017-10-17] MEDS: Acetaminophen IV 1,000 MG/100 ML INFUS..BTL IVPB SCH ×3 (04:24→07:49)
[2017-10-17] MEDS: *HR* Enoxaparin 30 MG/0.3 ML SYRINGE SQ SCH (04:24)
[2017-10-17] MEDS: *HR* OxyCODONE Immed Rel 5 MG TABLET PO PRN ×2 (04:48→10:03)
[2017-10-17 06:49] VITALS: BP 123/77
--- NOTE | 2017-10-17 06:54 | Orthopedics Progress Note ---
Date of Encounter: 10/17/17 Time of Encounter: 06:54 - Assessment and Plan (1) Arthritis of left knee Current Visit: Yes Status: Chronic (2) Status post total left knee replacement Current Visit: Yes Status: Acute (3) Obesity (BMI 30.0-34.9) Current Visit: Yes Status: Chronic (4) History of CVA (cerebrovascular accident) Current Visit: No Status: Chronic (5) COPD (chronic obstructive pulmonary disease) Current Visit: No Status: Chronic Qualifiers: COPD type: unspecified COPD Qualified Code(s): J44.9 - Chronic obstructive pulmonary disease, unspecified (6) Diabetes mellitus Current Visit: No Status: Chronic Qualifiers: Diabetes mellitus type: type 2 Diabetes mellitus complication status: with unspecified complications Diabetes mellitus termite exterminator helper insulin use: unspecified termite exterminator helper insulin use status Qualified Code(s): E11.8 - Type 2 diabetes mellitus with unspecified complications (7) Hypertension Current Visit: No Status: Chronic Qualifiers: Hypertension type: unspecified Qualified Code(s): I10 - Essential (primary ) hypertension (8) GERD (gastroesophageal reflux disease) Current Visit: No Status: Chronic Qualifiers: Esophagitis presence: esophagitis presence not specified Qualified Code(s) : K21.9 - Gastro-esophageal reflux disease without esophagitis (9) Status post shoulder replacement Current Visit: No Status: Chronic Qualifiers: Laterality: unspecified laterality Qualified Code(s): Z96.619 - Presence of unspecified artificial shoulder joint (10) Diabetes mellitus type 2, noninsulin dependent Current Visit: No Status: Chronic (11) Acute blood loss anemia Current Visit: Yes Status: Acute Subjective Principal diagnosis: Left knee arthritis Interval history: Patient was seen this morning doing well without complaints. Afebrile vital signs stable. Operative extremity: Neurovascularly intact Dressing clean dry and intact Calves nontender Assessment and plan: Continue with postoperative care Discharge today Objective Vital signs: Vital Signs Temp Pulse Resp BP Pulse Ox 10/17/17 06:47 98.6 F 95 18 123/77 96 10/17/17 04:08 98.0 F 65 15 124/70 98 10/16/17 23:52 98.2 F 91 17 110/60 98 10/16/17 20:22 98.6 F 84 17 114/76 96 10/16/17 15:03 98.8 F 94 18 127/80 97 10/16/17 10:47 98.2 F 98 20 127/79 93 10/16/17 08:10 95 Intake and Output 10/16/17 10/16/17 10/17/17 15:59 23:59 07:59 Intake Total 340 / 340 790 / 790 Balance 340 / 340 790 / 790 Intake: IV Fluids 100 / 100 100 / 100 Ofirmev 1,000 mg/100 ml 1,000 100 / 100 100 / 100 mg In 100 ml @ 400 mls/hr IVPB Q6H YO Rx#:[id number] Oral 240 / 240 690 / 690 Other: Meal Lunch Dinner Percent of Meal Consumed 100% 50% # Voids 1 Blood Glucose* 159 152 - Labs CBC & BMP: 10/16/17 06:31 10/16/17 06:31 Labs: Abnormal lab results Hgb 10.5 g/dL (11.5-15.4) L D 10/16/17 06:31 Hct 32.0 % (35.3-44.9) L 10/16/17 06:31 Potassium 4.6 mEq/L (3.5-4.5) H 10/16/17 06:31 Glucose 131 mg/dL (70-99) H 10/16/17 06:31 POC Glucose 146 (58-89) H 10/15/17 20:18 - VTE Documentation of Mechanical Device: Venous foot pump, device Consult Discharge Plan - Plan Referrals: Edilma Ahuja, JIG BORING MACHINE SET UP OPERATOR [Primary Care Provider] -
[2017-10-17] MEDS: Aspirin Enteric Coated 81 MG Tablet PO SCH (07:48)
[2017-10-17] MEDS: *HR* Metformin 500 MG TABLET PO SCH (07:48)
[2017-10-17] MEDS: Metoprolol XL (24 HR) Succ 50 MG TAB.ER.24H PO SCH (07:48)
[2017-10-17] MEDS: Gabapentin 400 MG CAPSULE PO SCH (07:48)
[2017-10-17] MEDS: Insulin LISPRO 300 UNITS/3 ML VIAL SQ SCH (07:49)
== END 2017-10-17 11:27 | DRG 470 ==
LOC: SAMDAY 11:05 → 3NENU 16:20
PROVIDERS: ADMIT Orthopaedic Surgery; ATTEND Orthopaedic Surgery